=== PATIENT | male | born 2000 | race Caucasian/White ===

== ENCOUNTER 2020-04-24 00:06 | Emergency (ER) | payer OTHER ==
[~2020-04-24] VITALS: Ht 177.8 cm; Wt 63.5 kg
[2020-04-24 00:08] VITALS: BP 136/83; Ht 177.8 cm; Wt 63.5 kg
== END 2020-04-24 00:19 | disposition other institution (70) ==
LOC: ED 00:06
DX: Z02.89 Encounter for other administrative examinations (principal)